=== PATIENT | female | born 1950 | race Caucasian/White ===

== ENCOUNTER 2016-10-16 06:06 | Inpatient (IN) | payer MEDICARE, OTHER ==
[2016-10-16] MEDS ORDERED: ceFAZolin 2 GM/50 ML 50 ML IV ONE (06:35)
[2016-10-16] MEDS ORDERED: LACTATED RINGERS 1,000 ML IV ONE ×2 (07:14→08:54)
[2016-10-16] MEDS ORDERED: MORPHINE PF 5 MG/10 ML AMP SUBQ ONE (08:37)
[2016-10-16] MEDS ORDERED: ROPIVACAINE 0.2% PF 20 ML AMPULE SUBQ ONE (08:37)
[2016-10-16] MEDS ORDERED: BUPIVACAINE 0.5%-EPI 1:200000 PF 10 ML VIAL SUBQ ONE (08:38)
[2016-10-16] MEDS ORDERED: KETOROLAC 15 MG/ML VIAL IVP ONE (08:38)
[2016-10-16] MEDS ORDERED: EPINEPHrine 1 MG/ML AMP IVP ONE (08:38)
[2016-10-16] MEDS ORDERED: MIDAZOLAM 2 MG/2 ML VIAL IVP ONE (08:40)
[2016-10-16] MEDS ORDERED: DEXAMETHASONE 4 MG/ML VIAL IVP ONE (08:40)
[2016-10-16] MEDS ORDERED: PHENYLEPHRINE 50 MG/5 ML VIAL IV ONE (08:40)
[2016-10-16] MEDS ORDERED: MORPHINE PF 5 MG/10 ML AMP EP ONE (08:40)
[2016-10-16] MEDS ORDERED: KETOROLAC 30 MG/ML VIAL IVP ONE (08:40)
[2016-10-16] MEDS ORDERED: LIDOCAINE-MPF 2% 5 ML VIAL IM ONE (08:40)
[2016-10-16] MEDS ORDERED: ACETAMINOPHEN 1,000 MG/100 ML VIAL IV ONE (08:40)
[2016-10-16] MEDS ORDERED: PROPOFOL 200 MG/20 ML VIAL IVP ONE (08:40)
[2016-10-16] MEDS ORDERED: TRANEXAMIC ACID 1,000 MG/10 ML VIAL IV ONE (08:40)
[2016-10-16] MEDS ORDERED: SODIUM CHLORIDE FLUSH 0.9% 10 ML SYRINGE IVP PRN (09:43)
[2016-10-16] MEDS ORDERED: ACETAMINOPHEN 325 MG TABLET PO PRN (09:43)
[2016-10-16] MEDS ORDERED: DOCUSATE SODIUM 100 MG CAPSULE PO PRN (09:43)
[2016-10-16] MEDS ORDERED: BISACODYL 10 MG SUPP PR PRN (09:43)
[2016-10-16] MEDS: LACTATED RINGERS 1,000 ML IV SCH ×2 (11:49→22:09)
[2016-10-16] MEDS ORDERED: MAGNESIUM HYDROXIDE 2,400 MG/30 ML UDC PO ONE (12:13)
[2016-10-16] MEDS: ACETAMINOPHEN 500 MG TABLET PO SCH ×3 (14:53→19:31)
[2016-10-16] MEDS: SODIUM CHLORIDE FLUSH 0.9% 10 ML SYRINGE IVP SCH ×2 (14:54→20:52)
[2016-10-16] MEDS: ceFAZolin 2 GM/50 ML 50 ML IV SCH (16:55)
[2016-10-16] MEDS: MORPHINE 2 MG/ML SYRINGE IVP PRN (16:55)
[2016-10-16] MEDS: AMITRIPTYLINE 25 MG TABLET PO SCH (20:50)
[2016-10-16] MEDS: oxyCOD/ACETAMIN 5 MG/325 MG TABLET PO PRN (22:11)
[2016-10-17] MEDS: ceFAZolin 2 GM/50 ML 50 ML IV SCH (00:07)
[2016-10-17] MEDS: MORPHINE 2 MG/ML SYRINGE IVP PRN (02:37)
[2016-10-17] MEDS: LEVOTHYROXINE 25 MCG TABLET PO SCH (06:53)
[2016-10-17] MEDS: oxyCOD/ACETAMIN 5 MG/325 MG TABLET PO PRN ×2 (06:54→10:27)
[2016-10-17] MEDS: SODIUM CHLORIDE FLUSH 0.9% 10 ML SYRINGE IVP SCH ×3 (06:55→21:02)
[2016-10-17] MEDS: LACTATED RINGERS 1,000 ML IV SCH ×2 (06:55→07:45)
[2016-10-17] MEDS: ACETAMINOPHEN 500 MG TABLET PO SCH ×4 (08:45→20:59)
[2016-10-17] MEDS: DOCUSATE SODIUM 250 MG CAPSULE PO SCH (08:46)
[2016-10-17] MEDS: SENNA 8.6 MG TABLET PO SCH (08:46)
[2016-10-17] MEDS: SERTRALINE 50 MG TABLET PO SCH (08:46)
[2016-10-17] MEDS: ASPIRIN 325 MG TABLET PO SCH ×2 (08:46→21:00)
[2016-10-17] MEDS: ONDANSETRON 4 MG/2 ML VIAL IVP PRN (11:50)
[2016-10-17] MEDS: AMITRIPTYLINE 25 MG TABLET PO SCH (20:59)
[2016-10-18] MEDS: oxyCOD/ACETAMIN 5 MG/325 MG TABLET PO PRN ×2 (00:47→07:10)
[2016-10-18] MEDS: LEVOTHYROXINE 25 MCG TABLET PO SCH (07:10)
[2016-10-18] MEDS: SODIUM CHLORIDE FLUSH 0.9% 10 ML SYRINGE IVP SCH ×3 (07:10→14:20)
[2016-10-18] MEDS: ASPIRIN 325 MG TABLET PO SCH ×2 (09:11→21:15)
[2016-10-18] MEDS: ACETAMINOPHEN 500 MG TABLET PO SCH ×3 (09:11→16:00)
[2016-10-18] MEDS: DOCUSATE SODIUM 250 MG CAPSULE PO SCH (09:12)
[2016-10-18] MEDS: SERTRALINE 50 MG TABLET PO SCH (09:12)
[2016-10-18] MEDS: SENNA 8.6 MG TABLET PO SCH (09:12)
[2016-10-18] MEDS: ONDANSETRON 4 MG/2 ML VIAL IVP PRN (14:19)
[2016-10-18] MEDS: AMITRIPTYLINE 25 MG TABLET PO SCH (21:15)
[2016-10-19] MEDS: oxyCOD/ACETAMIN 5 MG/325 MG TABLET PO PRN (05:02)
[2016-10-19] MEDS: LEVOTHYROXINE 25 MCG TABLET PO SCH (06:44)
[2016-10-19] MEDS: SODIUM CHLORIDE FLUSH 0.9% 10 ML SYRINGE IVP SCH (06:46)
[2016-10-19] MEDS: ASPIRIN 325 MG TABLET PO SCH (08:57)
[2016-10-19] MEDS: DOCUSATE SODIUM 250 MG CAPSULE PO SCH (08:57)
[2016-10-19] MEDS: SERTRALINE 50 MG TABLET PO SCH (08:58)
[2016-10-19] MEDS: SENNA 8.6 MG TABLET PO SCH (08:58)
== END 2016-10-19 09:50 | disposition home or self-care (01) | DRG 470 ==
PROC: 0SRB02A Replacement of Left Hip Joint with Metal on Polyethylene Synthetic Substitute, Uncemented, Open Approach (ICD-10-PCS; principal; 2016-10-16 07:30)
DX: M16.12 Unilateral primary osteoarthritis, left hip (principal); D62 Acute posthemorrhagic anemia; E03.9 Hypothyroidism, unspecified; Z87.440 Personal history of urinary (tract) infections

== ENCOUNTER 2019-02-06 07:52 | Outpatient (CLI) | payer MEDICARE, OTHER ==
--- NOTE | 2019-02-06 13:09 | Mammography Report ---
Reason: SCREENING MAMMO Procedure Date: 02/06/2019 Accession Number: [id number] / [id number] Procedure: TYLER - Screening Mammo w/Rodney CPT Code: FULL RESULT: EXAM: Screening Mammo w/Rodney DATE: 02/06/2019 8:19 AM CLINICAL HISTORY: Routine screening. No reported personal or family history of breast cancer. TECHNIQUE: (B) - Bilateral CC and MLO views were obtained. COMPARISON: 06/04/2016 through 07/10/2010 PARENCHYMAL PATTERN: (A) - The breasts demonstrate scattered fibroglandular densities bilaterally. FINDINGS: Bilateral breasts: There are no suspicious masses, calcifications, or areas of distortion. IMPRESSION: Negative examination. BI-RADS category 1. RECOMMENDATION: (ANNUAL) - Recommend routine annual screening mammography. BI-RADS CATEGORY: (1) - Negative. STANDARD QUALIFYING STATEMENTS: 1. This examination was not reviewed with the aid of Computer-Aided Detection (CAD). 2. A negative or benign imaging report should not preclude biopsy if clinically suspicious findings are present. 3. Dense breasts may obscure an underlying neoplasm. 4. This examination was reviewed with the aid of 3D breast imaging (tomosynthesis).
== END 2019-02-06 07:53 | disposition home or self-care (01) ==
LOC: DI 07:52
PROVIDERS: ATTEND Internal Medicine
DX: Z12.31 Encounter for screening mammogram for malignant neoplasm of breast (principal)
CPT/HCPCS: 77063; 77067

== ENCOUNTER 2019-02-06 07:53 | Outpatient (CLI) | payer MEDICARE, OTHER ==
--- NOTE | 2019-02-06 12:18 | DEXA Report ---
Reason: SCREENING FOR OSTEOPOROSIS,MENOPAUSAL Procedure Date: 02/06/2019 Accession Number: [id number] / [id number] Procedure: DEX - Dexa Spine and/or Hip CPT Code: FULL RESULT: EXAM: Dexa Spine and/or Hip DATE: 02/06/2019 8:32 AM CLINICAL HISTORY: SCREENING FOR Osteoporosis, menopausal TECHNIQUE: Dual energy x-ray absorptiometry (DXA) was performed on a [employer] System. Regions measured are the AP Spine, femoral neck, and if needed forearm. COMPARISON: 06/04/2016 In accordance with the International Society for Clinical Densitometry (ISCD) guidelines, data from previous exams may be reanalyzed using current recommendations and techniques. This is done to allow a more accurate basis for comparison with the current study. FINDINGS: The data for the lumbar spine is as follows: BMD (g/cm/cm) T-SCORE Z-SCORE REGION L1 0.896 -2.0 -0.3 L2 1.022 -1.5 0.2 L3 1.173 -0.2 1.5 L4 1.315 1.0 2.6 TOTAL 1.111 -0.6 1.1 NOTE: All evaluable vertebrae are used for classification The data for the hip is as follows: NOTE: Right hip is scored, compared to Left hip on 06/04/2016. BMD (g/cm/cm) T-SCORE Z-SCORE REGION Neck 0.809 -1.6 0.1 TOTAL 0.826 -1.4 0.0 NOTE: The femoral neck or total proximal femur, whichever is lowest, is used for classification. DXA RESULTS SUMMARY: Spine SCAN DATE AGE BMD CHANGE VS CHANGE VS PREVIOUS PREVIOUS % [birth year][age]06[birth year]2019 [age] 1[age]111 0.0004 0.4 06/04/2016 65.7 1.107 * Denotes significant change at the 95% confidence level. Denotes dissimilar scan types or analysis methods. IMPRESSION: THE WHO CLASSIFICATION BASED ON THE INTERNATIONAL REFERENCE STANDARD IS OSTEOPENIA. THE FRACTURE RISK IS INCREASED. RECOMMENDATION: Patients with diagnosis of osteoporosis or osteopenia should have regular bone mineral density assessment. For those eligible for Medicare, routine testing is allowed once every 2 years. Testing frequency can be increased for patients who have rapidly progressing disease or for those who are receiving medical therapy to restore bone mass. COMMENT: World Health Organization (WHO) definitions for osteoporosis and osteopenia: NORMAL BMD: T-score at -1.0 or higher, fracture risk is low OSTEOPENIA BMD: T-score between -1.0 and -2.5, fracture risk is increased. OSTEOPOROSIS BMD: T-score at -2.5 or lower, fracture risk is high. National Osteoporosis Foundation recommends: 1. Obtain adequate dietary calcium (at least 1200 mg per day) and vitamin D (400-800 international units per day). 2. Participate, as appropriate, in regular weightbearing and muscle-strengthening exercise. 3. Avoid tobacco use and reduce alcohol and caffeine intake. 4. For more detailed information see the website at www.NOF.org.
== END 2019-02-06 07:54 | disposition home or self-care (01) ==
LOC: DI 07:53
PROVIDERS: ATTEND Internal Medicine
DX: Z13.820 Encounter for screening for osteoporosis (principal); M85.88 Other specified disorders of bone density and structure, other site; N95.8 Other specified menopausal and perimenopausal disorders
CPT/HCPCS: 77080

== ENCOUNTER 2020-05-19 09:10 | Outpatient (CLI) | payer MEDICARE, OTHER ==
--- NOTE | 2020-05-20 09:08 | Mammography Report ---
BILATERAL DIGITAL SCREENING MAMMOGRAM 3D/2D: 05/19/2020 CLINICAL: Routine screening. Comparison is made to exams dated: 02/06/2019 mammogram and 06/04/2016 mammogram - [facility]. There are scattered fibroglandular elements in both breasts. No significant masses, calcifications, or other findings are seen in either breast. There has been no significant interval change. IMPRESSION: NEGATIVE There is no mammographic evidence of malignancy. A 1 year screening mammogram is recommended. This exam was interpreted at Station ID: [id number]. NOTE: For mammograms, a report in lay terms will be sent to the patient. Approximately 15% of breast malignancies will not be visualized mammographically. In the management of a palpable breast mass, a negative mammogram must not discourage biopsy of a clinically suspicious lesion. Electronically Signed By: Larry Lyles M.D. [facility] [place]:05/19/2020 11:48:35 ACR BI-RADS Category 1: Negative 3341F PARENCHYMAL PATTERN: (A) - The breast(s) demonstrate(s) scattered fibroglandular densities. BI-RADS CATEGORY: (1) - 1 RECOMMENDATION: (ANNUAL) - Recommend routine annual screening mammography. [id number] 1 year screening LATERALITY: (B)
== END 2020-05-19 09:11 | disposition home or self-care (01) ==
LOC: DI 09:10
PROVIDERS: ATTEND Nurse Practitioner
DX: Z12.31 Encounter for screening mammogram for malignant neoplasm of breast (principal)
CPT/HCPCS: 77063; 77067

== ENCOUNTER 2022-07-30 14:27 | Outpatient (CLI) | payer MEDICARE, OTHER ==
--- NOTE | 2022-08-01 16:25 | Mammography Report ---
BILATERAL DIGITAL SCREENING MAMMOGRAM 3D/2D: 07/30/2022 CLINICAL: Routine screening. Comparison is made to exams dated: 05/19/2020 mammogram, 06/04/2016 mammogram, 02/06/2019 mammogram - [facility], 08/02/2010 mammogram, and [facility]/02/[facility]. Both breasts are almost entirely fatty (category a/<25% glandular tissue). There is a biopsy clip in the left breast. No significant masses, calcifications, or other findings are seen in either breast. There has been no significant interval change. IMPRESSION: NEGATIVE There is no mammographic evidence of malignancy. A 1 year screening mammogram is recommended. Based on the Tyrer Cuzick model (a risk assessment model) the patients lifetime risk is 2.2% and her 10 year risk is 1.8%. According to the ACR, ACS, and NCCN guidelines, an annual breast MRI exam niel g with mammogram is recommended if the patients lifetime risk is 20% or greater. This exam was interpreted at Station ID: [id number]. NOTE: For mammograms, a report in lay terms will be sent to the patient. Approximately 15% of breast malignancies will not be visualized mammographically. In the management of a palpable breast mass, a negative mammogram must not discourage biopsy of a clinically suspicious lesion. Electronically Signed By: Marlene tse/yoli:07/31/2022 15:39:17 ACR BI-RADS Category 1: Negative 3341F PARENCHYMAL PATTERN: (F) - The breast(s) demonstrate(s) diffuse fatty replacement. BI-RADS CATEGORY: (1) - 1 RECOMMENDATION: (ANNUAL) - Recommend routine annual screening mammography. [id number] 1 year screening LATERALITY: (B)
== END 2022-07-30 14:28 | disposition home or self-care (01) ==
LOC: DI 14:27
PROVIDERS: ATTEND Physician Assistant
DX: Z12.31 Encounter for screening mammogram for malignant neoplasm of breast (principal)

== ENCOUNTER 2022-07-30 14:29 | Outpatient (CLI) | payer MEDICARE, OTHER ==
--- NOTE | 2022-07-30 16:54 | DEXA Report ---
PROCEDURE: Dexa Spine and/or Hip INDICATIONS: POST MENOPAUSAL TECHNIQUE: Dual energy x-ray absorptiometry (DXA) was performed on a [employer] System. Regions measur ed are the AP Spine, femoral neck, and if needed forearm. COMPARISON: None. FINDINGS: Lumbar Spine: Bone Mineral Density 1.08 g/cm/cm,T score -0.8, Right Hip: Bone Mineral Density 0.746 g/cm/cm,T score -2.1, Right Femoral Neck: Bone Mineral Density 0.749 g/cm/cm, T score -2.1, (T score greater or equal to -1.0: NORMAL) (T score from -1.1 to -2.4: OSTEOPENIA) (T score less than or equal to -2.5 to: OSTEOPOROSIS) Impression: Findings consistent with osteopenia involving the right hip. Patients with diagnosis of osteoporosis or osteopenia should have regular bone mineral density assess ment. For those eligible for Medicare, routine testing is allowed once every 2 years. Testing frequ ency can be increased for patients who have rapidly progressing disease or for those who are receivin g medical therapy to restore bone mass. Reviewed by: Nathan Baires MD on 07/30/2022 4:53 PM PST Approved by: Nathan Baires MD on 07/30/2022 4:53 PM PST Station ID: [id number]
== END 2022-07-30 14:30 | disposition home or self-care (01) ==
LOC: DI 14:29
PROVIDERS: ATTEND Physician Assistant
DX: Z78.0 Asymptomatic menopausal state (principal); N95.8 Other specified menopausal and perimenopausal disorders; M85.88 Other specified disorders of bone density and structure, other site

== ENCOUNTER 2024-01-08 10:15 | Outpatient (CLI) | payer MEDICARE, OTHER | END 2024-01-08 10:30 | disposition home or self-care (01) | LOC: LAB.N 10:15 | PROVIDERS: ATTEND Nurse Practitioner | DX: J02.9 Acute pharyngitis, unspecified (principal) | CPT/HCPCS: 87070; 87101 ==

== ENCOUNTER 2024-03-19 08:02 | Day surgery (SDC) | payer MEDICARE ==
[2024-03-19] MEDS: PROPARACAINE 0.5% OPHTH DROPS 15 ML ONE (08:15)
[2024-03-19] MEDS: KETOROLAC 0.45% OPHTH DROPS ONE (08:15)
[2024-03-19] MEDS: CYCLOPENTOLATE 1% OPHTH DROPS 2 ML ONE (08:15)
[2024-03-19] MEDS: PHENYLEPHRINE 2.5% OPHTH 2 ML DROPS ONE (08:15)
[2024-03-19] MEDS: LACTATED RINGERS 1,000 ML IV ONE (08:22)
--- NOTE | 2024-03-19 09:20 | ANESTHESIA ---
Pre-Anesthesia VS, & Labs - Diagnosis L cataract - Procedure L cataract extraction with IOL Vital Signs: Temp Pulse Resp BP Pulse Ox O2 Flow Rate 36.5 C 78 16 153/90 H 99 0 03/19/24 08:17 03/19/24 08:17 03/19/24 08:17 03/19/24 08:17 03/19/24 08:17 03/19/24 08:17 Height: 5 ft 5 in Weight (kg): 65.2 kg Body Mass Index: 23.9 BMI Classification: Normal - NPO >8 hours - Is Patient ?: No - Lab Results Lab results reviewed: Yes Home Medications and Allergies Home Medications: Ambulatory Orders Rosuvastatin Calcium 1 tab PO DAILY 03/18/24 Amitriptyline HCl 50 mg PO DAILY 10/16/16 Levothyroxine Sodium [Synthroid] 50 mcg PO DAILY 10/16/16 Rosuvastatin Calcium 1 tab PO DAILY 03/18/24 Allergies/Adverse Reactions: Allergies Allergy/AdvReac Type Severity Reaction Status Date / Time No Known Drug Allergies Allergy Verified 03/18/24 13:38 Anes History & Medical History - Anesthetic History Anesthesia Complications: reports: No previous complications Family history of Anesthesia Complications: Denies Family history of Malignant Hyperthermia: Denies - Medical History Cardiovascular: reports: High cholesterol Pulmonary: reports: None Gastrointestinal: reports: None Urinary: reports: None Musculoskeletal: reports: Osteoarthritis, Osteopenia, Other Endocrine/Autoimmune: reports: HyPOthyroidism Skin: reports: None History of Cancer?: No - Surgical History Orthopedic: reports: Arthroscopic surgery, Carpal Tunnel surgery, Other (thoracic outlet release) Exam General: Alert, Oriented x3, Cooperative Dental: WNL Mouth Openin Fingerbreadth Neck Mobility: Normal Mallampati classification: II Thyromental Distance: 4-6 cm Respiratory: Lungs clear, Normal breath sounds, No respiratory distress Cardiovascular: Regular rate Neurological: Normal speech Mental/Cognitive Status: Alert/Oriented X3, Normal for patient Cognitive Status: Within normal limits Plan Anesthesia Type: MAC Consent for Procedure(s) Verified and Reviewed: Yes Code Status: Attempt Resuscitation ASA classification: 2-Mild systemic disease Is this case an emergency?: No
[2024-03-19] MEDS ORDERED: MIDAZOLAM 2 MG/2 ML VIAL ONE (09:57)
[2024-03-19] MEDS ORDERED: EPINEPHrine 1 MG/ML AMP ONE (10:05)
[2024-03-19] MEDS ORDERED: BSS/LIDOCAINE/EPINEPHRINE 1 ML VIAL ONE (10:06)
[2024-03-19] MEDS ORDERED: BRIMONIDINE 0.2% OPHTH DROPS 5 ML ONE (10:06)
[2024-03-19] MEDS ORDERED: TRIAMCIN/MOXIFLOX OPHTHALMIC 0.6 ML VIAL IO ONE (10:06)
[2024-03-19] MEDS ORDERED: TIMOLOL 0.5% OPHTH DROPS ONE (10:06)
[2024-03-19] MEDS: BRIMONIDINE 0.2% OPHTH DROPS 5 ML OPTH ONE (10:10)
[2024-03-19] MEDS: EPINEPHrine 1 MG/ML AMP IR ONE (10:10)
[2024-03-19] MEDS: BSS/LIDOCAINE/EPINEPHRINE 1 ML SYRINGE IO ONE (10:11)
[2024-03-19] MEDS: TRIAMCIN/MOXIFLOX OPHTHALMIC 0.6 ML VIAL IO ONE (10:11)
[2024-03-19] MEDS: TIMOLOL 0.5% OPHTH DROPS OPTH ONE (10:11)
[2024-03-19] MEDS: PROPARACAINE 0.5% OPHTH DROPS 15 ML EACHEYE ONE (10:11)
[2024-03-19] MEDS: VANCOMYCIN OPHTH (TOPICAL) 10 MG/ML SYRINGE TOP ONE (10:12)
[2024-03-19] MEDS: LACTATED RINGERS 900 ML IV ONE ×2 (10:47→11:24)
--- NOTE | 2024-03-19 10:48 | OPERATIVE REPORT ---
Operative Report - Other Other Information/Narrative: Date of Surgery: 03/19/24 Preop Dx: Visually significant cataract left eye. This was the first cataract surgery. Postop Dx: Same Procedure: Phacoemulsification with posterior chamber intraocular lens implant left eye Surgeon: Dr. Gray Maya Anesthesia: Monitored anesthesia care Complications: None Operative Indications: This is a 73-year-old F with progressive vision loss in the left eye due to 3+ nuclear sclerotic and 2+ cortical cataract. Best corrected visual acuity was 20/40 with glare to 20/800 vision in the left eye. Indications for surgery were: - Overall decrease in vision - Difficulty seeing words on a computer screen - Difficulty reading - Difficulty seeing words, closed captions, or game scores on TV - Difficulty seeing street signs - Difficulty driving in low light or at night - Difficulty driving at night because of headlights from other vehicles - Difficulty with glare or bright lights in any situation The patient was consented at length concerning the risks and benefits of cataract surgery after which the patient expressed a desire to proceed with surgery. Operative Procedure: The patient was taken into OR#3 and placed under monitored anesthesia care. A surgical time-out was conducted confirming correct patient, correct procedure, and correct surgical site. The patient was given topical anesthesia and then prepped and draped in the usual sterile fashion. The eye was entered at the 6 and 3 oclock positions. Intracameral Shugarcaine was injected into the anterior chamber followed by a dispersive viscoelastic. A continuous-tear curvilinear capsulorhexis was performed. The nucleus was hydrodissected and phacoemulsified. The cortex was evacuated using automated infusion and aspiration. A cohesive viscoelastic was injected into the capsular bag and a 15.5 diopter intraocular lens was inserted into the bag. Infusion and aspiration were used to evacuate the viscoelastic materials from the eye. The wounds were hydrated and the eye inflated to physiologic pressure using balanced salt solution. Approximately 0.25ml of a mixture of triamcinolone and moxifloxacin was injected trans-sclerally into the vitreous in the inferotemporal quadrant using a 30 gauge cannula. An additional 0.25ml of a mixture of triamcinolone and moxifloxacin was injected subconjunctivally in the superior quadrant for infection and inflammation prophylaxis. Wound integrity was checked with Weck-Rissa sponges. The patient was taken from the operating room in good condition and given post-op instructions.
--- NOTE | 2024-03-19 10:51 | ANESTHESIA POST OP EVALUATION ---
Anesthesia Post Eval - Post Anesthesia Eval Vitals: Last Vital Signs Temp 36.5 C 03/19/24 08:17 Pulse 78 03/19/24 08:17 Resp 16 03/19/24 08:17 BP 153/90 H 03/19/24 08:17 Pulse Ox 99 03/19/24 08:17 O2 Flow Rate 0 03/19/24 08:17 CV Function Including HR & BP: Stable Pain Control: Satisfactory Nausea & Vomiting: Negative Mental Status: Baseline Respiratory Status: Airway Patent Hydration Status: Satisfactory Anesthesia Complications: None
[2024-03-19 10:53] VITALS: O2SAT 98
[2024-03-19 11:14] VITALS: BP 126/61
== END 2024-03-19 08:03 | disposition home or self-care (01) ==
LOC: SDS 08:02
PROVIDERS: ATTEND Ophthalmology
DX: H25.812 Combined forms of age-related cataract, left eye (principal)
CPT/HCPCS: 66984; A9270; J3490; J7120; V2787

== ENCOUNTER 2024-04-30 09:18 | Day surgery (SDC) | payer MEDICARE ==
[2024-04-30] MEDS: PROPARACAINE 0.5% OPHTH DROPS 15 ML ONE (09:35)
[2024-04-30] MEDS: KETOROLAC TROMETHAMINE 0.5% OPHTH DROPS 5 ML ONE (09:36)
[2024-04-30] MEDS: CYCLOPENTOLATE 1% OPHTH DROPS 2 ML ONE (09:37)
[2024-04-30] MEDS: PHENYLEPHRINE 2.5% OPHTH 2 ML DROPS ONE (09:38)
--- NOTE | 2024-04-30 10:34 | ANESTHESIA ---
Pre-Anesthesia VS, & Labs - Diagnosis R cataract - Procedure R extraction cataract with IOL Vital Signs: Temp Pulse Resp BP Pulse Ox O2 Flow Rate 36.4 C L 89 16 119/71 96 04/30/24 09:31 04/30/24 09:31 04/30/24 09:31 04/30/24 09:31 04/30/24 09:31 Height: 5 ft 5 in Weight (kg): 65.2 kg Body Mass Index: 23.9 BMI Classification: Normal - NPO >8 hours - Is Patient ?: No - Lab Results Lab results reviewed: Yes Home Medications and Allergies Amitriptyline HCl 50 mg PO DAILY 10/16/16 Levothyroxine Sodium [Synthroid] 50 mcg PO DAILY 10/16/16 Rosuvastatin Calcium 1 tab PO DAILY 03/18/24 Allergies/Adverse Reactions: Allergies Allergy/AdvReac Type Severity Reaction Status Date / Time No Known Drug Allergies Allergy Verified 03/18/24 13:38 Anes History & Medical History - Anesthetic History Anesthesia Complications: reports: No previous complications Family history of Anesthesia Complications: Denies Family history of Malignant Hyperthermia: Denies - Medical History Cardiovascular: reports: High cholesterol Pulmonary: reports: None Gastrointestinal: reports: None Urinary: reports: None Musculoskeletal: reports: None, Fibromyalgia Endocrine/Autoimmune: reports: None, HyPOthyroidism Skin: reports: None - Surgical History Eyes Ears Nose Throat (EENT): reports: Cataracts Orthopedic: reports: Hip replacement, Carpal Tunnel surgery Exam General: Alert, Oriented x3, Cooperative Dental: WNL Mouth Openin Fingerbreadth Neck Mobility: Normal Mallampati classification: II Respiratory: Lungs clear, Normal breath sounds, No respiratory distress Cardiovascular: Regular rate Neurological: Normal speech Mental/Cognitive Status: Alert/Oriented X3, Normal for patient Cognitive Status: Within normal limits Plan Anesthesia Type: MAC Consent for Procedure(s) Verified and Reviewed: Yes Code Status: Attempt Resuscitation ASA classification: 2-Mild systemic disease Is this case an emergency?: No
[2024-04-30] MEDS ORDERED: MIDAZOLAM 2 MG/2 ML VIAL ONE (10:36)
[2024-04-30] MEDS ORDERED: TIMOLOL 0.5% OPHTH DROPS ONE (10:44)
[2024-04-30] MEDS ORDERED: BSS/LIDOCAINE/EPINEPHRINE 1 ML VIAL ONE (10:44)
[2024-04-30] MEDS ORDERED: TRIAMCIN/MOXIFLOX OPHTHALMIC 0.6 ML VIAL IO ONE (10:44)
[2024-04-30] MEDS ORDERED: BRIMONIDINE 0.2% OPHTH DROPS 5 ML ONE (10:44)
[2024-04-30] MEDS ORDERED: EPINEPHrine 1 MG/ML AMP ONE (10:44)
[2024-04-30] MEDS: BRIMONIDINE 0.2% OPHTH DROPS 5 ML OPTH ONE (11:01)
[2024-04-30] MEDS: TIMOLOL 0.5% OPHTH DROPS OPTH ONE (11:02)
[2024-04-30] MEDS: TRIAMCIN/MOXIFLOX OPHTHALMIC 0.6 ML VIAL IO ONE (11:02)
[2024-04-30] MEDS: EPINEPHrine 1 MG/ML AMP IR ONE (11:02)
[2024-04-30] MEDS: BSS/LIDOCAINE/EPINEPHRINE 1 ML SYRINGE IO ONE (11:02)
[2024-04-30] MEDS: PROPARACAINE 0.5% OPHTH DROPS 15 ML RIGHTEYE ONE (11:02)
[2024-04-30] MEDS: VANCOMYCIN OPHTH (TOPICAL) 10 MG/ML SYRINGE TOP ONE (11:03)
[2024-04-30] MEDS: LACTATED RINGERS 50 ML IV ONE (11:19)
[2024-04-30 11:33] VITALS: BP 114/63; O2SAT 96
--- NOTE | 2024-04-30 11:36 | OPERATIVE REPORT ---
Operative Report - Other Other Information/Narrative: Date of Surgery: 04/30/24 Preop Dx: Visually significant cataract right eye. Cataract surgery was performed in the left eye on . Postop Dx: Same Procedure: Phacoemulsification with posterior chamber intraocular lens implant right eye Surgeon: Dr. Gray Maya Anesthesia: Monitored anesthesia care Complications: None Operative Indications: This is a 73-year-old F with progressive vision loss in the right eye due to 3+ nuclear sclerotic and 2+ cortical cataract. Best corrected visual acuity was 20/50 with glare to 20/800 vision in the right eye. Indications for surgery were: - Overall decrease in vision - Difficulty seeing words on a computer screen - Difficulty reading - Difficulty seeing words, closed captions, or game scores on TV - Difficulty seeing street signs - Difficulty driving in low light or at night - Difficulty driving at night because of headlights from other vehicles - Difficulty with glare or bright lights in any situation - Difficulty tracking a golf ball The patient was consented at length concerning the risks and benefits of cat aract surgery after which the patient expressed a desire to proceed with surgery. Operative Procedure: The patient was taken into OR#3 and placed under monitored anesthesia care. A surgical time-out was conducted confirming correct patient, correct procedure, and correct surgical site. The patient was given topical anesthesia and then prepped and draped in the usual sterile fashion. The eye was entered at the 6 and 3 oclock positions. Intracameral Shugarcaine was injected into the anterior chamber followed by a dispersive viscoelastic. A capsulorhexis was attempted but there was no resistance and an initial tear could not be started. After several attempts the phaco was introduced to remove lens debris for visualization. This caused fluid to be introduced into the capsule revealing that the incredibly thin anterior capsule was far more anterior than where I had been using the cystotome. A can retread supervisor rhexis was used to complete the capsulorhexis. The nucleus was prolapsed into the anterior chamber, hydrodissected, and phacoemulsified. The cortex was evacuated using automated infusion and aspiration. A cohesive viscoelastic was injected into th e capsular bag and a 14.0 diopter intraocular lens was inserted into the bag. Infusion and aspiration were used to evacuate the viscoelastic materials from the eye. The wounds were hydrated and the eye inflated to physiologic pressure using balanced salt solution. Approximately 0.25ml of a mixture of triamcinolone and moxifloxacin was injected trans-sclerally into the vitreous in the inferotemporal quadrant using a 30 gauge cannula. An additional 0.25ml of a mixture of triamcinolone and moxifloxacin was injected subconjunctivally in the superior quadrant for infection and inflammation prophylaxis. Wound integrity was checked with Weck-Rissa sponges. The patient was taken from the operating room in good condition, told of the difficulty experienced with the capsule but that I felt the lens would be stable and the visual result unaffected, and given post-op instructions.
--- NOTE | 2024-04-30 14:14 | ANESTHESIA POST OP EVALUATION ---
Anesthesia Post Eval - Post Anesthesia Eval Vitals: Last Vital Signs Temp 36.5 C 04/30/24 11:32 Pulse 80 04/30/24 11:32 Resp 16 04/30/24 11:32 BP 114/63 04/30/24 11:32 Pulse Ox 96 04/30/24 11:32 O2 Flow Rate CV Function Including HR & BP: Stable Pain Control: Satisfactory Nausea & Vomiting: Negative Mental Status: Baseline Respiratory Status: Airway Patent Hydration Status: Satisfactory Anesthesia Complications: None
== END 2024-04-30 09:19 | disposition home or self-care (01) ==
LOC: SDS 09:18
PROVIDERS: ATTEND Ophthalmology
DX: H25.811 Combined forms of age-related cataract, right eye (principal); E03.9 Hypothyroidism, unspecified; Z98.42 Cataract extraction status, left eye
CPT/HCPCS: 66984; A9270; J3490; J7120